=== PATIENT | female | born 1995 | race Caucasian/White ===

== ENCOUNTER 2020-07-16 18:45 | Emergency (ER) | payer MEDICAID, OTHER ==
[~2020-07-16] VITALS: Ht 154 cm; Wt 55.0 kg
[2020-07-16 19:53] LABS: BILIRUBIN,URINE NEGATIVE (NEGATIVE); COLOR,URINE YELLOW; GLUCOSE, URINE (UA) NEGATIVE (NEGATIVE); KETONES,URINE NEGATIVE (NEGATIVE); LEUKOCYTE ESTERASE ,URINE NEGATIVE (NEGATIVE); NITRITE,URINE NEGATIVE (NEGATIVE); PROTEIN,URINE NEGATIVE (NEGATIVE)
[2020-07-16 20:00] LABS: AMORPHOUS SEDIMENT,UR LARGE AMOR PHOSPHATE /LPF; BACTERIA,URINE TRACE /HPF; CLARITY,URINE SL CLOUDY; SQUAMOUS EPITHELIAL CELL,UR 0-2 /HPF
--- NOTE | 2020-07-16 20:16 | ED GU-Female ---
General Chief Complaint: OB < 20 WEEKS Stated Complaint: 6 WKS PREG/VAG BLEEDING Source: patient History of Present Illness Date Seen by Provider: Jul 16, 2020 Time Seen by Provider: 19:50 Initial Comments PT ARRIVES VIA POV FROM HOME PT STATES SHE IS 6 WEEKS , AND STARTED SPOTTING YESTERDAY HAD NORMAL PERIOD 04/29/20. ON 05/23/20-BLED FOR A COUPLE OF DAYS. 05/30-06/03--HAD NORMAL PERIOD A COUPLE OF WEEKS AGO, SHE BEGAN HAVING LOWER ABDOMINAL CRAMPING--BILATERAL PELVIC AREAS. SAW DR. JACOBSON APPROXIMATELY 1 1/2 WEEKS AGO FOR THIS PROBLEM AND WAS DX WITH . HAD ULTRASOUND DONE IN OFFICE AND WAS 5 WEEKS, 6 DAYS AT THAT TIME. HAD ROUTINE LAB DONE LAST FRIDAY HAS FOLLOW UP APPOINTMENT WITH DR. JACOBSON FOR EXAM AND ULTRASOUND. PT IS AB 0 PT STATES YESTERDAY SHE HAD A LITTLE SPOTTING--BLOOD ON TISSUE WITH WIPING, AND USED 1 PANTY LINER--NOT SATURATED/JUST SPOTTING. TODAY HAS HAD VERY MINIMAL BROWN SPOTTING TODAY AND NONE SINCE 1500. CRAMPING IS NOT ANY WORSE THAN IT HAS BEEN FOR THE LAST 2 WEEKS. HAS NOT TAKEN ANYTHING FOR PAIN TODAY. TOOK TYLENOL YESTERDAY. NO URINARY SYMPTOMS NO NAUSEA/VOMITING PT IS ON SUBUTEX FOR OPOID ADDICTION, AND IS BEING WEANED OFF XANAX SINCE BEING DX WITH . PT HAS NOT USED MARIJUANA SINCE BEING DX WITH . PCP: [facility]. DR. Silvana HAMILTON FOR ADDICTION ISSUES. DR. JACOBSON FOR OB Allergies and Home Medications Allergies Coded Allergies: Penicillins (Verified Allergy, Unknown, 07/16/20) Patient Home Medication List Home Medication List Reviewed: Yes Review of Systems Review of Systems Constitutional: no symptoms reported Respiratory: no symptoms reported Cardiovascular: no symptoms reported Gastrointestinal: see HPI, abdominal pain; No nausea, No vomiting Genitourinary: see HPI : Yes LMP: May 30, 2020 Musculoskeletal: no symptoms reported Skin: no symptoms reported Psychiatric/Neurological: No Symptoms Reported Endocrine: No Symptoms Reported Hematologic/Lymphatic: No Symptoms Reported Past [id number]-[id number] Hx Past Med/Social Hx: Reviewed and Corrections made Patient Social History Alcohol Use: Denies Use Recreational Drug Use: Yes (OPIOIDS, THC, XANAX) Drug of Choice: OPIODS, THC, XANAX Smoking Status: Never a Smoker Recent Foreign Travel: No Contact w/Someone Who Travel: No Past Medical History Surgeries: Yes (WISDOM TEETH REMOVED. ) Respiratory: No Cardiac: No Neurological: No : Yes Hx : 1 Hx Para: 0 Hx Total # of Abortions (Sp): 0 Physical Exam Vital Signs Vital Signs - First Documented 07/16/20 07/16/20 19:47 21:18 Temp 36.9 Pulse 71 Resp 18 B/P (MAP) 123/92 (102) Pulse Ox 100 O2 Delivery Room Air Capillary Refill : Height, Weight, BMI Height: '" Weight: lbs. oz. kg; BMI Method: General Appearance: WD/WN, no apparent distress, thin Cardiovascular: regular rate, rhythm, no murmur Respiratory: normal breath sounds, no respiratory distress, no accessory muscle use Gastrointestinal: normal bowel sounds, non tender, soft Pelvic: normal external exam; No tender adnexa, No tender uterus, No vaginal bleeding Back: no CVA tenderness Extremities: normal inspection Neurologic/Psychiatric: no motor/sensory deficits, alert, normal mood/affect, oriented x 3 Skin: normal color, warm/dry Progress/Results/Core Measures Suspected Sepsis SIRS Temperature: Pulse: Respiratory Rate: Blood Pressure / Mean: Results/Orders Lab Results Laboratory Tests Test 07/16/20 19:35 07/16/20 20:25 Range/Units Urine Color YELLOW Urine Clarity SL CLOUDY Urine pH 7.0 5-9 Urine Specific [place] 1.020 1.016-1.022 Urine Protein NEGATIVE NEGATIVE Urine Glucose (UA) NEGATIVE NEGATIVE Urine Ketones NEGATIVE NEGATIVE Urine Nitrite NEGATIVE NEGATIVE Urine Bilirubin NEGATIVE NEGATIVE Urine Urobilinogen 1.0 < = 1.0 MG/DL Urine Leukocyte Esterase NEGATIVE NEGATIVE Urine RBC (Auto) NEGATIVE NEGATIVE Urine RBC NONE /HPF Urine WBC NONE /HPF Urine Squamous Epithelial Cells 0-2 /HPF Urine Crystals PRESENT H /LPF Urine Amorphous Sediment LARGE EBONY PHOSPHATE H /LPF Urine Bacteria TRACE /HPF Urine Casts NONE /LPF Urine Mucus NEGATIVE /LPF Urine Culture Indicated NO Urine Test POSITIVE NEGATIVE Urine Opiates Screen NEGATIVE NEGATIVE Urine Oxycodone Screen NEGATIVE NEGATIVE Urine Methadone Screen NEGATIVE NEGATIVE Urine Propoxyphene Screen NEGATIVE NEGATIVE Urine Barbiturates Screen NEGATIVE NEGATIVE Ur Tricyclic Antidepressants Screen NEGATIVE NEGATIVE Urine Phencyclidine Screen NEGATIVE NEGATIVE Urine Amphetamines Screen NEGATIVE NEGATIVE Urine Methamphetamines Screen NEGATIVE NEGATIVE Urine Benzodiazepines Screen POSITIVE H NEGATIVE Urine Cocaine Screen NEGATIVE NEGATIVE Urine Cannabinoids Screen NEGATIVE NEGATIVE Human Chorionic Gonadotropin, Quant [id number] H <5 MIU/ML My Orders Orders - JOSSE HERNADEZ DO Hcg,Qualitative Urine (07/16/20 19:46) Ua Culture If Indicated (07/16/20 19:46) Hcg,Quantitative (07/16/20 19:53) Abo Rh Type (07/16/20 19:53) Drug Screen Stat (Urine) (07/16/20 20:09) Vital Signs/I&O 07/16/20 07/16/20 19:47 21:18 Temp 36.9 36.9 Pulse 71 70 Resp 18 18 B/P (MAP) 123/92 (102) 122/90 (102) Pulse Ox 100 O2 Delivery Room Air Room Air Capillary Refill : Progress Note : Progress Note NO ULTRASOUND AVAILABLE AT THIS TIME NO PAIN OR BLEEDING DURING ER STAY Departure Impression Primary Impression: Threatened in first trimester Disposition: 01 HOME, SELF-CARE Condition: Stable Departure-Patient Inst. Referrals: CHARLIE JACOBSON MD (PCP/Family) Primary Care Physician Patient Instructions: Bleeding With (DC), Threatened Miscarriage (DC), Bleeding In Early Add. Discharge Instructions: TYLENOL NEEDED FOR PAIN NOTHING IN VAGINA--NO TAMPONS, DOUCHING OR INTERCOURSE KEEP AN ACCURATE PAD COUNT--RETURN IF SOAKING MORE THAN 1 MAXI PAD AN HOUR FOLLOW UP WITH [facility] THIS WEEK FOR FURTHER CARE. All discharge instructions reviewed with patient and/or family. Voiced unde rstanding. JOSSE HERNADEZ DO Jul 16, 2020 20:15
[2020-07-16 20:59] LABS: AMPHETAMINE SCREEN, URINE NEGATIVE (NEGATIVE); BARBITURATE SCREEN URINE NEGATIVE (NEGATIVE); BENZODIAZEPINES SCREEN URINE POSITIVE (NEGATIVE); CANNABINOID SCREEN, URINE NEGATIVE (NEGATIVE); COCAINE SCREEN URINE NEGATIVE (NEGATIVE); METHADONE STAT NEGATIVE (NEGATIVE); METHAMPHETAMINE SCREEN URINE S NEGATIVE (NEGATIVE); OPIATE SCREEN URINE NEGATIVE (NEGATIVE); OXYCODONE STAT NEGATIVE (NEGATIVE); PROPOXYPHENE STAT NEGATIVE (NEGATIVE); TRICYCLIC ANTIDEPRESSANTS SCRE NEGATIVE (NEGATIVE)
[2020-07-16 21:18] VITALS: BP 122/90
== END 2020-07-16 21:19 | disposition home or self-care (01) ==
LOC: ER 18:47
DX: O20.0 Threatened abortion (principal); Z3A.01 Less than 8 weeks gestation of pregnancy; Z88.0 Allergy status to penicillin
CPT/HCPCS: 36415; 80306; 81000; 84702; 84703; 86900; 86901; 99282

== ENCOUNTER 2021-07-03 23:39 | Inpatient (IN) | payer MEDICAID ==
[~2021-07-03] VITALS: Ht 154.9 cm; Wt 72.3 kg
[2021-07-04] VITALS (10 sets, daily range): BP systolic 95–124; BP diastolic 50–81
[2021-07-04 00:07] LABS: BILIRUBIN,URINE NEGATIVE (NEGATIVE); CLARITY,URINE CLEAR; COLOR,URINE YELLOW; GLUCOSE, URINE (UA) NEGATIVE (NEGATIVE); KETONES,URINE NEGATIVE (NEGATIVE); LEUKOCYTE ESTERASE ,URINE 1+ (NEGATIVE); NITRITE,URINE NEGATIVE (NEGATIVE); PROTEIN,URINE TRACE (NEGATIVE)
[2021-07-04 00:18] LABS: BACTERIA,URINE TRACE /HPF; WBC,URINE 0-2 /HPF
[2021-07-04] MEDS ORDERED: CATHETER FLUSH 10 ML SYR IV PRN (00:30)
[2021-07-04] MEDS ORDERED: METOCLOPRAMIDE INJ 10 MG/2 ML (REGLAN) IV ONE (00:30)
[2021-07-04] MEDS ORDERED: LACTATED RINGERS 1,000 ML IV PRN (00:30)
[2021-07-04] MEDS ORDERED: FAMOTIDINE 20MG/2ML IV (PEPCID) IV ONE (00:30)
[2021-07-04] MEDS ORDERED: CITRIC ACID/SOB CIT (BICITRA) 30 ML UDC PO ONE (00:30)
[2021-07-04] MEDS ORDERED: FERR-84 PO (00:33)
[2021-07-04] MEDS ORDERED: BUPR8TAB SL (00:33)
[2021-07-04] MEDS ORDERED: ceFAZolin 2 GM IV Premixed 50 ML IV ONE (00:45)
[2021-07-04 00:47] LABS: BASOPHILS % (AUTO) 0 % (0-10); EOSINOPHILS # (AUTO) 0.1 10^3/uL (0.0-0.3); EOSINOPHILS % (AUTO) 1 % (0-10); HEMATOCRIT 36 % (35-52); HEMOGLOBIN 11.6 g/dL (11.5-16.0); LYMPHOCYTES # (AUTO) 1.6 10^3/uL (1.0-4.0); LYMPHOCYTES % (AUTO) 23 % (12-44); MEAN CORPUSCULAR HEMOGLOBIN 30 pg (25-34); MEAN CORPUSCULAR HGB CONC 32 g/dL (32-36); MEAN CORPUSCULAR VOLUME 94 fL (80-99); MEAN PLATELET VOLUME 10.8 fL (9.0-12.2); MONOCYTES # (AUTO) 0.8 10^3/uL (0.0-1.0); MONOCYTES % (AUTO) 11 % (0-12); NEUTROPHILS # (AUTO) 4.4 10^3/uL (1.8-7.8); NEUTROPHILS % (AUTO) 64 % (42-75); PLATELET COUNT 166 10^3/uL (130-400); WHITE BLOOD COUNT 6.9 10^3/uL (4.3-11.0)
[2021-07-04] MEDS: LACTATED RINGERS 1,000 ML IV PRN ×2 (00:52→01:30)
--- NOTE | 2021-07-04 00:54 | History & Physical-OB ---
OB - Chief Complaint & HPI Date/Time Date of Admission: Date of Admission: Time Seen by a Provider: 12:37 Chief Complaint/History OB-Reason for Admission/Chief: Rupture of Membranes (This is a 25-year-old 2 para 0 female at 37 weeks gestation. She presents for spontaneous rupture of membranes. 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 She states her most recent outbreak was within the last [address] Hernandez gave her a prescription for acyclovir but she has not picked that up. I was not able to examine her to see if she is still having an acute outbreak.) Hx : 2 Hx Para: 0 Expected Date of Delivery: Jul 25, 2021 Gestational Age in Weeks: 37 Gestational Age in Days: 0 Admission Nurse Assessment Rev: Yes History of Labs GBS - A+/- HIV - VDRL NR HCV Ab + HCV RNA + VDRL NR Rub results were not located on the patient chart from Dr. Hernandez. Allergies and Home Medications Allergies Coded Allergies: Penicillins (Verified Allergy, Unknown, 07/16/20) Patient Home Medication List Home Medication List Reviewed: Yes (PCN, able to take cephalosporins) Buprenorphine HCl (Buprenorphine HCl) 8 Mg Tab.subl, 8 MG SL, (Reported) Entered as Reported by: ROD EVANS on 07/04/2132 Last Action: New Order Ferrous Sulfate (Iron) 325 Mg Tablet, 325 MG PO, (Reported) Entered as Reported by: ROD EVANS on 07/04/2132 Last Action: New Order OB - History Hx of Present Ultrasounds: Normal mid trimester US Obstetrical Complications: None Medical Complications: Other (acute HSV outbreak, Maternal opoid abuse on b uprenophine, HCV +) Information Induced Hypertension: No Maternal Gestational Diabetes: No Hemorrhage: No Obstetrical History Hx : 2 Hx Para: 0 Hx # Term Pregnancies: 0 Hx # Pregnancies: 0 Number of Living Children: 0 Patient Past Medical History See above Social History/Family History Alcohol Use: Denies Use Recreational Drug Use: Yes (history of opioid abuse on buprenorphine) Smoking Cessation: Never smoker 2nd Hand Smoke Exposure: No Immunizations Hepatitis A: No Hepatitis B: No Rubella: unknown RPR/VDRL: Negative GBS Status: Negative HBsAG: Negative OB - Admission Exam Physical Exam Heart: Rhythm Normal Lungs: Clear Abdomen: Gravid Extremities: Normal Reflexes: Normal Cervical Dilatation: 3cm Effacement: 75% Station: -2 Membranes: Ruptured Amniotic Fluid: Clear Heart Rate: 130's Accelerations: No Accelerations Short Term Variability: Absent Mask Inspector Variability: Minimal (3-5) Contractions on Admission: 6-10 Minutes Apart Labs Laboratory Tests Test 07/03/21 23:45 07/04/21 00:37 Range/Units Urine Color YELLOW Urine Clarity CLEAR Urine pH 7.0 5-9 Urine Specific [place] 1.010 L 1.016-1.022 Urine Protein TRACE H NEGATIVE Urine Glucose (UA) NEGATIVE NEGATIVE Urine Ketones NEGATIVE NEGATIVE Urine Nitrite NEGATIVE NEGATIVE Urine Bilirubin NEGATIVE NEGATIVE Urine Urobilinogen 0.2 < = 1.0 MG/DL Urine Leukocyte Esterase 1+ H NEGATIVE Urine RBC (Auto) TRACE-I H NEGATIVE Urine RBC NONE /HPF Urine WBC 0-2 /HPF Urine Squamous Epithelial Cells 5-10 /HPF Urine Crystals NONE /LPF Urine Bacteria TRACE /HPF Urine Casts NONE /LPF Urine Mucus SMALL H /LPF Urine Culture Indicated NO White Blood Count 6.9 4.3-11.0 10^3/uL Red Blood Count 3.84 3.80-5.11 10^6/uL Hemoglobin 11.6 11.5-16.0 g/dL Hematocrit 36 35-52 % Mean Corpuscular Volume 94 80-99 fL Mean Corpuscular Hemoglobin 30 25-34 pg Mean Corpuscular Hemoglobin Concent 32 32-36 g/dL Red Cell Distribution Width 13.2 10.0-14.5 % Platelet Count 166 130-400 10^3/uL Mean Platelet Volume 10.8 9.0-12.2 fL Immature Granulocyte % (Auto) 0 % Neutrophils (%) (Auto) 64 42-75 % Lymphocytes (%) (Auto) 23 12-44 % Monocytes (%) (Auto) 11 0-12 % Eosinophils (%) (Auto) 1 0-10 % Basophils (%) (Auto) 0 0-10 % Neutrophils # (Auto) 4.4 1.8-7.8 10^3/uL Lymphocytes # (Auto) 1.6 1.0-4.0 10^3/uL Monocytes # (Auto) 0.8 0.0-1.0 10^3/uL Eosinophils # (Auto) 0.1 0.0-0.3 10^3/uL Basophils # (Auto) 0.0 0.0-0.1 10^3/uL Immature Granulocyte # (Auto) 0.0 0.0-0.1 10^3/uL OB - Assessment/Plan/Diagnosis Assessment Assessment: rupture of membranes, other (HSV + with recent outbreak, history of untreated HCV, history of opioid abuse on buprenorphine) Admission Dx Premature rupture of membranes Admission Status: Inpatient Order (span 2 midnights) Reason for Inpatient Admission: premature rupture of membranes section (see history) 37 week gestation Plan Plan: Section (Will plan primary cesaraen section as discussed with the patient by Dr. Hernandez due to recent HSV outbreak. Risks of this procedure including infection, bleeding, injury to bowel, bladder, ureter has been explained to the patient. Will plan CS now) ROSANNE PEPPER DO Jul 04, 2021 00:54
[2021-07-04] MEDS ORDERED: fentaNYL INJ 100 MCG/2 ML AMP ONE (01:25)
[2021-07-04] MEDS ORDERED: TETANUS,DIPTH,PERTUSS P/F (BOOSTRIX) 0.5 ML VIAL IM SCH (01:45)
[2021-07-04] MEDS ORDERED: NALOXONE 0.4 MG/ML 1 ML (NARCAN) VIAL IV PRN ×2 (01:45→09:45)
[2021-07-04] MEDS ORDERED: OXYTOCIN PRE-MIX DRIP 500 ML IV SCH (01:45)
[2021-07-04] MEDS ORDERED: OXYTOCIN PRE-MIX DRIP 500 ML IV ONE (01:51)
[2021-07-04] MEDS ORDERED: PHENYLEPHRINE 100 MCG/ML 10 ML (ANESTHESIA) SYR ONE (01:51)
[2021-07-04] MEDS ORDERED: ROPIVACAINE 5MG/ML 30ML VIAL ONE (01:59)
[2021-07-04] MEDS ORDERED: KETOROLAC 30 MG/ML VIAL ONE (02:24)
--- NOTE | 2021-07-04 02:31 | Cesarean Section Operative ---
Procedure Procedure Note Pre-operative Diagnosis: Mariela Madrigal is a (25 /Para 2 / 0, Gestational Age (wks)37 with recent HSV outbreak with SROM, Hep C +, history of opioid abuse on suboxone Post-operative Diagnosis: same Procedure: Primary low transverse section Physician: ROSANNE PEPPER Estimated blood loss: 600 mL Disposition: stable Findings: Viable female , Apgars 8/9, weight 5$6 ounces, intact placenta, 3vc, normal appearing uterus, tubes, and ovaries. Indications:Mariela Madrigal is a 25 /Para 2 / 0,Gestational Age (wks)37 with recent HSV outbreak with SROM, Hep C +, history of opioid abuse on suboxone presenting for primary section Procedure Details: The patient was seen in pre-op and the procedure was discussed with the patient in full, including the risks, benefits, and alternatives. All questions were answered. The patient was taken to the operating room and a time out was performed, verifying patient and procedure. After spinal anesthesia was placed by our anesthesia colleagues, the patient was placed in the dorsal supine with leftward tilt for uterine displacement.~ Her abdomen was then prepped and draped in the typical sterile fashion. A Pfannenstiel skin incision was made using a scalpel and carried down through the underlying fascia. The fascia was incised in the midline and tented up using Boogie clamps. On both the inferior and superior fascia side the rectus muscle was dissected off bluntly and sharply using Khan scissors. The peritoneum was identified and entered bluntly in the midline. This was then stretched laterally using manual strength. After entering the abdominal cavity and confirming lack of intraperitoneal adhesions, a large Elpidio retractor was placed and the lower uterine segment was visualized. A scalpel was utilized to make a low transverse uterine incision. Amniotomy was performed with an Allis clamp with return of clear fluid. The infant's head was grasped and brought to the level of the incision with assistance of a silastic suction. Fundal pressure was applied and infant was delivered without difficulty. Mouth and nares were suctioned with bulb suction. After the umbilical cord was clamped and cut, the infant was handed off to the pediatric staff. A sample of cord blood was then obtained. The placenta was delivered intact via uterine massage. The uterus was cleared of all clots and debris. The uterine incision was closed using 0 Vicryl in a running locked fashion. A second imbricated layer was placed using 0 Vicryl in a running fashion as well. The bilateral tubes and ovaries appeared normal. The abdominal gutters were cleared of all clots and debris. A final check of the uterine incision showed it to be hemostatic. The peritoneum was closed using 3-0 Vicryl in a running fashion. The fascia was closed with 2-0 PDS in a running fashion. The subcutaneous space was hemostatic, and irrigated. The subcutaneous space was closed with 0 Plain in several single interrupted stitches. The skin was then closed using 4-0 Monocryl in a running subcuticular fashion. The skin edges were reapproximated together and were hemostatic. A pressure dressing was applied. All sponge, lap and needle counts were correct at the end of the procedure per nursing. Vitals - Labs Vital Signs - I&O I & O 07/04/21 07:00 Intake Total 1050 ml Output Total 150 ml Balance 900 ml Labs Laboratory Tests 07/03/21 23:45: Urine Color YELLOW, Urine Clarity CLEAR, Urine pH 7.0, Urine Specific [place] 1.010L, Urine Protein TRACEH, Urine Glucose (UA) NEGATIVE, Urine Ketones NEGATIVE, Urine Nitrite NEGATIVE, Urine Bilirubin NEGATIVE, Urine Urobilinogen 0.2, Urine Leukocyte Esterase 1+H, Urine RBC (Auto) TRACE-IH, Urine RBC NONE, Urine WBC 0-2, Urine Squamous Epithelial Cells 5-10, Urine Crystals NONE, Urine Bacteria TRACE, Urine Casts NONE, Urine Mucus SMALLH, Urine Culture Indicated NO 07/04/21 00:37: White Blood Count 6.9, Red Blood Count 3.84, Hemoglobin 11.6, Hematocrit 36, Mean Corpuscular Volume 94, Mean Corpuscular Hemoglobin 30, Mean Corpuscular Hemoglobin Concent 32, Red Cell Distribution Width 13.2, Platelet Count 166, Mean Platelet Volume 10.8, Immature Granulocyte % (Auto) 0, Neutrophils (%) (Auto) 64, Lymphocytes (%) (Auto) 23, Monocytes (%) (Auto) 11, Eosinophils (%) (Auto) 1, Basophils (%) (Auto) 0, Neutrophils # (Auto) 4.4, Lymphocytes # (Auto) 1.6, Monocytes # (Auto) 0.8, Eosinophils # (Auto) 0.1, Basophils # (Auto) 0.0, Immature Granulocyte # (Auto) 0.0 ROSANNE PEPPER DO Jul 04, 2021 02:31
[2021-07-04] MEDS ORDERED: HYDROmorphone 2 MG/ML VIAL (DILAUDID) IV ONE (03:00)
[2021-07-04] MEDS ORDERED: ONDANSETRON 4 MG/2 ML (SDV) Z0FRAN IVP PRN (03:00)
[2021-07-04] MEDS ORDERED: CATHETER FLUSH 10 ML SYR IV SCH (06:00)
[2021-07-04] MEDS: KETOROLAC 30 MG/ML VIAL IV SCH ×2 (07:57→14:29)
[2021-07-04] MEDS: ACETAMINOPHEN 500 MG TAB (TYLENOL) PO SCH ×2 (07:57→16:11)
[2021-07-04] MEDS: DOCUSATE SODIUM 100 MG (COLACE) CAP PO SCH (07:58)
[2021-07-04] MEDS: MEASLES,MUMPS,RUBELLA 1 EA INJ SC SCH ×2 (08:45→17:37)
[2021-07-04] MEDS ORDERED: IBUP-844 PO (13:06)
[2021-07-04] MEDS ORDERED: DOCU100C37 PO (13:06)
[2021-07-04] MEDS ORDERED: ACET-93 PO (13:06)
[2021-07-04] MEDS ORDERED: OXC5T PO (13:06)
--- NOTE | 2021-07-04 14:10 | Anesthesia-Regional Post-Op ---
Regional Patient Condition Mental Status: Alert, Oriented x3 Circulation: Same as Pre-Op Headache: Absent Sensation: Full Recovery Motor Block: Absent Post Op Complications Complications None Follow Up Care/Instructions Patient Instructions None needed. Anesthesia/Patient Condition Patient is doing well, no complaints, stable vital signs, no apparent adverse anesthesia problems. No complications reported per nursing. ALEKSANDR BROWNING CRNA Jul 04, 2021 14:10
[2021-07-04] MEDS ORDERED: IBUPROFEN 600 MG (MOTRIN) TAB PO SCH (14:30)
[2021-07-04] MEDS ORDERED: IBUPROFEN 600 MG (MOTRIN) TAB PO ONE ×2 (14:38→21:22)
[2021-07-04] MEDS: IBUPROFEN 600 MG (MOTRIN) TAB PO SCH (21:26)
[2021-07-05 00:30] VITALS: BP 93/51
[2021-07-05] MEDS ORDERED: IBUPROFEN 600 MG (MOTRIN) TAB PO ONE ×2 (03:36→10:17)
[2021-07-05] MEDS: IBUPROFEN 600 MG (MOTRIN) TAB PO SCH ×4 (03:39→21:57)
[2021-07-05] MEDS: ACETAMINOPHEN 500 MG TAB (TYLENOL) PO SCH ×4 (03:39→21:57)
[2021-07-05 03:40] VITALS: BP 97/65
[2021-07-05] MEDS ORDERED: IBUPROFEN 600 MG (MOTRIN) TAB PO SCH (06:00)
[2021-07-05 06:31] LABS: BASOPHILS % (AUTO) 0 % (0-10); EOSINOPHILS # (AUTO) 0.1 10^3/uL (0.0-0.3); EOSINOPHILS % (AUTO) 1 % (0-10); HEMATOCRIT 30 % (35-52); HEMOGLOBIN 9.7 g/dL (11.5-16.0); LYMPHOCYTES # (AUTO) 1.7 10^3/uL (1.0-4.0); LYMPHOCYTES % (AUTO) 19 % (12-44); MEAN CORPUSCULAR HEMOGLOBIN 30 pg (25-34); MEAN CORPUSCULAR HGB CONC 32 g/dL (32-36); MEAN CORPUSCULAR VOLUME 94 fL (80-99); MEAN PLATELET VOLUME 11.8 fL (9.0-12.2); MONOCYTES # (AUTO) 0.8 10^3/uL (0.0-1.0); MONOCYTES % (AUTO) 9 % (0-12); NEUTROPHILS # (AUTO) 6.3 10^3/uL (1.8-7.8); NEUTROPHILS % (AUTO) 70 % (42-75); PLATELET COUNT 169 10^3/uL (130-400); WHITE BLOOD COUNT 8.9 10^3/uL (4.3-11.0)
[2021-07-05] MEDS: DOCUSATE SODIUM 100 MG (COLACE) CAP PO SCH ×3 (08:32→21:56)
[2021-07-05 08:45] VITALS: BP 108/56
--- NOTE | 2021-07-05 15:31 | Postpartum Progress Note ---
Note Note Day # 1 Subjective: Patient is without complaints. Ambulating, voiding. Tolerating a regular diet without nausea or vomiting. Normal lochia. Pain is well controlled with oral pain medications. Objective: Physical Exam: General - Alert and oriented, no apparent distress Abdomen - Soft, appropriately tender to palpation, non-distended, fundus firm at umbilicus Extremities - no edema, negative Deanne's bilaterally Assessment: Post- day # 1, status post PLTCS. Recovering well, hemodynamically stable Acute blood loss anemia Plan: Routine care. Encourage breast feeding. Encourage ambulation. Ferrous sulfate supplementation. Plan for discharge tomorrow Vitals - Labs Vital Signs - I&O Vital Signs Date Time Temp Pulse Resp B/P (MAP) Pulse Ox O2 Delivery O2 Flow Rate FiO2 07/05/21 08:45 36.5 76 16 108/56 (73) 95 07/05/21 03:40 36.7 82 18 97/65 (76) 97 07/05/21 00:30 36.6 67 18 93/51 (65) 94 07/04/21 21:25 37.1 78 18 102/63 (76) 94 07/04/21 15:59 36.5 76 18 100/50 (67) 95 I & O 07/05/21 07:00 Intake Total 2000 ml Output Total 1900 ml Balance 100 ml Labs Laboratory Tests 07/05/21 05:36: White Blood Count 8.9, Red Blood Count 3.21L, Hemoglobin 9.7L, Hematocrit 30L, Mean Corpuscular Volume 94, Mean Corpuscular Hemoglobin 30, Mean Corpuscular Hemoglobin Concent 32, Red Cell Distribution Width 13.4, Platelet Count 169, Mean Platelet Volume 11.8, Immature Granulocyte % (Auto) 0, Neutrophils (%) (Auto) 70, Lymphocytes (%) (Auto) 19, Monocytes (%) (Auto) 9, Eosinophils (%) (Auto) 1, Basophils (%) (Auto) 0, Neutrophils # (Auto) 6.3, Lymphocytes # (Auto) 1.7, Monocytes # (Auto) 0.8, Eosinophils # (Auto) 0.1, Basophils # (Auto) 0.0, Immature Granulocyte # (Auto) 0.0 DAVID ESQUIVEL APRN Jul 05, 2021 15:31
[2021-07-05 16:25] VITALS: BP 107/66
[2021-07-05 17:50] LABS: BASOPHILS # (AUTO) 0.1 10^3/uL (0.0-0.1); BASOPHILS % (AUTO) 1 % (0-10); EOSINOPHILS # (AUTO) 0.2 10^3/uL (0.0-0.3); EOSINOPHILS % (AUTO) 2 % (0-10); HEMATOCRIT 30 % (35-52); HEMOGLOBIN 9.8 g/dL (11.5-16.0); LYMPHOCYTES # (AUTO) 1.7 10^3/uL (1.0-4.0); LYMPHOCYTES % (AUTO) 17 % (12-44); MEAN CORPUSCULAR HEMOGLOBIN 30 pg (25-34); MEAN CORPUSCULAR HGB CONC 33 g/dL (32-36); MEAN CORPUSCULAR VOLUME 94 fL (80-99); MEAN PLATELET VOLUME 11.1 fL (9.0-12.2); MONOCYTES # (AUTO) 0.7 10^3/uL (0.0-1.0); MONOCYTES % (AUTO) 7 % (0-12); NEUTROPHILS # (AUTO) 7.5 10^3/uL (1.8-7.8); NEUTROPHILS % (AUTO) 74 % (42-75); PLATELET COUNT 196 10^3/uL (130-400); WHITE BLOOD COUNT 10.1 10^3/uL (4.3-11.0)
[2021-07-05 21:57] VITALS: BP 107/65
[2021-07-06] VITALS (10 sets, daily range): BP systolic 105–131; BP diastolic 58–84
[2021-07-06] MEDS: IBUPROFEN 600 MG (MOTRIN) TAB PO SCH (04:18)
[2021-07-06] MEDS: ACETAMINOPHEN 500 MG TAB (TYLENOL) PO SCH ×2 (06:24→16:55)
[2021-07-06] MEDS: DOCUSATE SODIUM 100 MG (COLACE) CAP PO SCH ×2 (09:00→21:21)
--- NOTE | 2021-07-06 09:55 | Progress Note ---
Progress Note Assessment/Plan Date Seen by Provider: Jul 05, 2021 Time Seen by Provider: 17:30 Events since last exam RN asked me to come see the patient's incision. Said it iw very painful and bruised. Concerned about the appearance. Patient complains of RUQ and shoulder pain and pain on the right side of the incision with movement. Discssed that the RUQ and shoulder pain are due to air and will improve with movement and time. However, her incision is very ecchymotic There is a line of ecchymosis superior and inferior to the incions in a band approximately 4 cm. This is a superficial ecchymotic area. However, there is a 4x5 cm hematoma in the left incision. There is no drainage. Hematoma edge was marked. Will check CBC and place pressure and reevaluate in the morning. Assessment/Plan wound hematoma post operative ecchymosis plan as above Vitals Last set of Vitals Signs Vital Signs Date Time Temp Pulse Resp B/P (MAP) Pulse Ox O2 Delivery O2 Flow Rate FiO2 07/06/21 04:18 36.5 79 16 105/62 (76) 97 Room Air I&O I&O Intake and Output 07/06/21 00:00 Intake Total 700 ml Output Total 1200 ml Balance -500 ml Intake Oral 700 ml Output Urine Total 1200 ml Labs Laboratory Tests 07/05/21 17:42: White Blood Count 10.1, Red Blood Count 3.22L, Hemoglobin 9.8L, Hematocrit 30L, Mean Corpuscular Volume 94, Mean Corpuscular Hemoglobin 30, Mean Corpuscular Hemoglobin Concent 33, Red Cell Distribution Width 13.6, Platelet Count 196, Mean Platelet Volume 11.1, Immature Granulocyte % (Auto) 0, Neutrophils (%) (Auto) 74, Lymphocytes (%) (Auto) 17, Monocytes (%) (Auto) 7, Eosinophils (%) (Auto) 2, Basophils (%) (Auto) 1, Neutrophils # (Auto) 7.5, Lymphocytes # (Auto) 1.7, Monocytes # (Auto) 0.7, Eosinophils # (Auto) 0.2, Basophils # (Auto) 0.1, Immature Granulocyte # (Auto) 0.0 ROSANNE PEPPER DO Jul 06, 2021 09:54
--- NOTE | 2021-07-06 09:59 | Postpartum Progress Note ---
Post Op Post-operative Day #2 s/p PLTCS wound hematoma Subjective: Patient states she feels a little better but still with pain in incision. Ambulating,Tolerating a regular diet without nausea or vomiting. Normal lochia. Pain is well controlled with oral pain medications. Passing flatus. breast feeding. Objective: plts count was wnl. Hgb stable \\ Laboratory Tests Test 07/05/21 17:42 Range/Units White Blood Count 10.1 4.3-11.0 10^3/uL Red Blood Count 3.22 L 3.80-5.11 10^6/uL Hemoglobin 9.8 L 11.5-16.0 g/dL Hematocrit 30 L 35-52 % Mean Corpuscular Volume 94 80-99 fL Mean Corpuscular Hemoglobin 30 25-34 pg Mean Corpuscular Hemoglobin Concent 33 32-36 g/dL Red Cell Distribution Width 13.6 10.0-14.5 % Platelet Count 196 130-400 10^3/uL Mean Platelet Volume 11.1 9.0-12.2 fL Immature Granulocyte % (Auto) 0 % Neutrophils (%) (Auto) 74 42-75 % Lymphocytes (%) (Auto) 17 12-44 % Monocytes (%) (Auto) 7 0-12 % Eosinophils (%) (Auto) 2 0-10 % Basophils (%) (Auto) 1 0-10 % Neutrophils # (Auto) 7.5 1.8-7.8 10^3/uL Lymphocytes # (Auto) 1.7 1.0-4.0 10^3/uL Monocytes # (Auto) 0.7 0.0-1.0 10^3/uL Eosinophils # (Auto) 0.2 0.0-0.3 10^3/uL Basophils # (Auto) 0.1 0.0-0.1 10^3/uL Immature Granulocyte # (Auto) 0.0 0.0-0.1 10^3/uL Physical Exam: General - Alert and oriented, no apparent distress Abdomen - Soft, appropriately tender to palpation, non-distended, fundus firm at umbilicus Incision - clean, dry and intact; no erythema or induration, no drainage; however, there is a hematoma described yesterday and this is unchanged. No bigger, no smaller. The eccyhmosis has not progressed either. She does have petechiae and ecchymosis on the periphery of the location that the cautery patch was removed. Extremities - no edema, negative Deanne's bilaterally Assessment: 1. post-operative day # 2, status post PLTCS. Recovering well, hemodynamically stable 2. Acute blood loss anemia 3. Wound hematoma and ecchymosis Plan: Routine post-operative care. Encourage breast feeding. Encourage ambulation. Plan wound evacuation in the OR today. Risks include bleeding, infection. Will open wound and clean out hematoma and then reclose. Vitals - Labs Vital Signs - I&O Vital Signs Date Time Temp Pulse Resp B/P (MAP) Pulse Ox O2 Delivery O2 Flow Rate FiO2 07/06/21 04:18 36.5 79 16 105/62 (76) 97 Room Air 07/05/21 21:57 36.6 91 16 107/65 (79) 96 Room Air 07/05/21 16:25 36.5 69 16 107/66 (80) 96 Room Air I & O 07/06/21 07:00 Intake Total 1500 ml Output Total 1200 ml Balance 300 ml Labs Laboratory Tests 07/05/21 17:42: White Blood Count 10.1, Red Blood Count 3.22L, Hemoglobin 9.8L, Hematocrit 30L, Mean Corpuscular Volume 94, Mean Corpuscular Hemoglobin 30, Mean Corpuscular Hemoglobin Concent 33, Red Cell Distribution Width 13.6, Platelet Count 196, Mean Platelet Volume 11.1, Immature Granulocyte % (Auto) 0, Neutrophils (%) (Auto) 74, Lymphocytes (%) (Auto) 17, Monocytes (%) (Auto) 7, Eosinophils (%) (Auto) 2, Basophils (%) (Auto) 1, Neutrophils # (Auto) 7.5, Lymphocytes # (Auto) 1.7, Monocytes # (Auto) 0.7, Eosinophils # (Auto) 0.2, Basophils # (Auto) 0.1, Immature Granulocyte # (Auto) 0.0 ROSANNE PEPPER DO Jul 06, 2021 09:59
[2021-07-06] MEDS ORDERED: LACTATED RINGERS 1,000 ML IV PRN (11:00)
[2021-07-06] MEDS: LACTATED RINGERS 1,000 ML IV SCH ×2 (11:02→16:55)
[2021-07-06 11:15] LABS: BASOPHILS % (AUTO) 0 % (0-10); EOSINOPHILS # (AUTO) 0.3 10^3/uL (0.0-0.3); EOSINOPHILS % (AUTO) 3 % (0-10); HEMATOCRIT 29 % (35-52); HEMOGLOBIN 9.4 g/dL (11.5-16.0); LYMPHOCYTES # (AUTO) 1.3 10^3/uL (1.0-4.0); LYMPHOCYTES % (AUTO) 16 % (12-44); MEAN CORPUSCULAR HEMOGLOBIN 30 pg (25-34); MEAN CORPUSCULAR HGB CONC 32 g/dL (32-36); MEAN CORPUSCULAR VOLUME 94 fL (80-99); MEAN PLATELET VOLUME 11.2 fL (9.0-12.2); MONOCYTES # (AUTO) 0.7 10^3/uL (0.0-1.0); MONOCYTES % (AUTO) 9 % (0-12); NEUTROPHILS # (AUTO) 5.4 10^3/uL (1.8-7.8); NEUTROPHILS % (AUTO) 70 % (42-75); PLATELET COUNT 202 10^3/uL (130-400); WHITE BLOOD COUNT 7.7 10^3/uL (4.3-11.0)
[2021-07-06] MEDS ORDERED: ceFAZolin 2 GM IV Premixed 50 ML IV ONE (12:00)
[2021-07-06] MEDS ORDERED: BUPIVACAINE 0.5% 30 ML (SENSORCAINE) VIAL ONE (13:00)
[2021-07-06] MEDS ORDERED: fentaNYL INJ 100 MCG/2 ML AMP ONE (13:58)
[2021-07-06] MEDS ORDERED: MIDAZOLAM 2 MG/2 ML (VERSED) VIAL ONE (13:58)
[2021-07-06] MEDS ORDERED: PROPOFOL INJECTION 50 ML IV ONE (14:14)
[2021-07-06] MEDS ORDERED: LIDOCAINE PF 2% 5 ML (XYLOCAINE) VIAL ONE (15:10)
[2021-07-06] MEDS ORDERED: KETOROLAC 30 MG/ML VIAL ONE (15:12)
[2021-07-06] MEDS ORDERED: morphine INJ 10 MG/ML 1ML (SYR OR VIAL) IVP PRN (15:30)
--- NOTE | 2021-07-06 15:30 | Operative Report ---
Operative Report Date of Procedure/Surgery Jul 06, 2021 Surgeon (s) ROSANNE PEPPER DO International Coordinator (s): NA Post-Operative Diagnosis incisional hematoma Procedure Performed Evacuation of incisional hematoma Description of Procedure Anesthesia Type: Spinal Estimated blood loss (mL): 150 clotted blood, no active bleeding Specimen(s) collected/removed none Description of the Procedure With informed consent, the patient was taken to the operating room where general anesthetic was found to be adequate. The incision was examined and found to have no extension of the hematoma from yesterday. But there was extensive ecchymosis surrounding the incision. The previous incision was then opened. The surgical glue was removed and the sutures were cut with a scalpel and then with the scissors. There was a large amount of hematoma that was evacuated from the incision. There was, approximately 150 mL of clotted blood suctioned from the incision. I then copiously irrigated. I could not find an active bleeding. But upon further investigation there was some oozing from the left apex. This was suspected to be the cause of bleeding. This was controlled with cautery. I then irrigated the incision and found no further active bleeding. The fascia was intact. The Purnima's fascia was reapproximated with 0 plain in an interrupted fashion. I then closed reclosed the incision with subcuticular 4-0 Monocryl. Surgical glue was replaced on the incision. Bandage was not placed as it was suspected that she had a reaction to the previous bandage. There was no active bleeding. The patient was now awakened and taken to recovery room in stable condition. Sponge, needle, and instrument counts were correct x2. Findings of the Procedure there was about 150 ml of clotted blood in the incision. There was no extension of the hematoma since yesterday. The wound was intact. There continues to be ecchymosis superior and inferior to the incision, but this was stable since I examined her yesterday. Allergies and Home Medications Allergies Coded Allergies: Penicillins (Verified Allergy, Unknown, 07/16/20) Patient Home Medication List Home Medication List Reviewed: Yes Acetaminophen (Acetaminophen) 500 Mg Tablet, 1,000 MG PO Q8HR Prescribed by: ROSANNE PEPPER on 07/04/21 1306 Buprenorphine HCl (Buprenorphine HCl) 8 Mg Tab.subl, 8 MG SL, (Reported) Entered as Reported by: ROD EVANS on 07/04/2132 Last Action: New Order Docusate Sodium (Docusate Sodium) 100 Mg Capsule, 100 MG PO BID Prescribed by: ROSANNE PEPPER on 07/04/21 130 Ferrous Sulfate (Iron) 325 Mg Tablet, 325 MG PO, (Reported) Entered as Reported by: ROD EVANS on 07/04/2132 Last Action: New Order Ibuprofen (Ibu) 600 Mg Tablet, 600 MG PO Q6HR Prescribed by: ROSANNE PEPPER on 07/04/21 1306 Oxycodone Hcl (Oxyir Tablet) 5 Mg Tab, 10 MG PO Q6H PRN for PAIN-SEE DOSE INSTRUCTIONS Prescribed by: ROSANNE PEPPER on 07/04/21 130 ROSANNE PEPPER DO Jul 06, 2021 15:30
[2021-07-06] MEDS: KETOROLAC 30 MG/ML VIAL IVP SCH (21:21)
[2021-07-07] MEDS ORDERED: IBUPROFEN 600 MG (MOTRIN) TAB PO ONE ×2 (04:04→09:36)
[2021-07-07] MEDS: IBUPROFEN 600 MG (MOTRIN) TAB PO SCH ×2 (04:04→09:47)
[2021-07-07 04:05] VITALS: BP 115/66
[2021-07-07] MEDS: ACETAMINOPHEN 500 MG TAB (TYLENOL) PO SCH ×2 (04:05→15:01)
[2021-07-07 06:24] LABS: BASOPHILS % (AUTO) 0 % (0-10); EOSINOPHILS # (AUTO) 0.2 10^3/uL (0.0-0.3); EOSINOPHILS % (AUTO) 3 % (0-10); HEMATOCRIT 28 % (35-52); HEMOGLOBIN 9.2 g/dL (11.5-16.0); LYMPHOCYTES # (AUTO) 0.7 10^3/uL (1.0-4.0); LYMPHOCYTES % (AUTO) 10 % (12-44); MEAN CORPUSCULAR HEMOGLOBIN 31 pg (25-34); MEAN CORPUSCULAR HGB CONC 33 g/dL (32-36); MEAN CORPUSCULAR VOLUME 94 fL (80-99); MEAN PLATELET VOLUME 10.5 fL (9.0-12.2); MONOCYTES # (AUTO) 0.6 10^3/uL (0.0-1.0); MONOCYTES % (AUTO) 9 % (0-12); NEUTROPHILS # (AUTO) 5.8 10^3/uL (1.8-7.8); NEUTROPHILS % (AUTO) 78 % (42-75); PLATELET COUNT 204 10^3/uL (130-400); WHITE BLOOD COUNT 7.5 10^3/uL (4.3-11.0)
[2021-07-07] MEDS: DOCUSATE SODIUM 100 MG (COLACE) CAP PO SCH (09:46)
[2021-07-07 10:30] VITALS: BP 107/64
[2021-07-07] MEDS: KETOROLAC 30 MG/ML VIAL IVP SCH ×2 (14:00→14:30)
[2021-07-07] MEDS: LACTATED RINGERS 1,000 ML IV SCH (14:32)
[2021-07-07 15:30] VITALS: BP 116/70
[2021-07-07 17:45] VITALS: BP 116/70
--- NOTE | 2021-07-08 10:07 | Anesthesia-General Post-Op ---
General Patient Condition Mental Status/LOC: Same as Preop Cardiovascular: Satisfactory Nausea/Vomiting: Absent Respiratory: Satisfactory Pain: Controlled Complications: Absent Post Op Complications Complications None Follow Up Care/Instructions Patient Instructions None needed. Anesthesia/Patient Condition Patient Condition Patient is doing well, no complaints, stable vital signs, no apparent adverse anesthesia problems. No complications reported per nursing. GAVINO QUEVEDO CRNA Jul 08, 2021 10:07
--- NOTE | 2021-07-26 08:18 | Short Stay Summary ---
Discharge Summary Hospital Course Final Diagnosis: SROM, HSV, 37 weeks, wound hematoma, anemia Hospital Course Date of Admission: Jul 04, 2021 at 00:25 Admission Diagnosis : Family Physician/Provider: Lisa Solomon MD Date of Discharge: 07/26/21 Discharge Diagnosis: HSV infection SROM 37 week gestation wound hematoma opiate dependence Hospital Course: Rupture of Membranes (This is a 25-year-old 2 para 0 female at 37 weeks gestation. She presents for spontaneous rupture of membranes. 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 She states her most recent outbreak was within the last [address] Hernandez gave her a prescription for acyclovir but she has not picked that up. I was not able to examine her to see if she is still having an acute outbreak.) section was done without complication. she was admitted for post operative care. Initial pain management was with toradol and oxycodone and then ibuprofen, tylenol and oxycodone. She had initially a routine post operative course. She was on suboxone for history of opioid abuse and this was continued post operatively with oxycodone for breakthrough pain. On post operative day 1 hemoglobin was 9.7 was was a drop from initial hemoglobin. Her incision was very ecchymotic on the periphery and she had increased pain and swelling. Ice and an abdominal binder was placed but the swelling did not decrease over night. She did not have drop in hemoglobin, but, due to suspected wound hematoma, she was taken back to surgery for wound evacuation. (see operative report). She was then readmitted for post operative care. Her hemoglobin remained stable and on POD 3 from cs and 1 from return to surgery she was discharged to parent room. Her oxycodone usage will be monitored with Dr. Madrigal who monitors her suboxone dosing. Labs and Pending Lab Test: Home Meds Active Ibu (Ibuprofen) 600 Mg Tablet 600 Mg PO Q6HR Docusate Sodium 100 Mg Capsule 100 Mg PO BID Acetaminophen 500 Mg Tablet 1,000 Mg PO Q8HR Oxyir Tablet (Oxycodone HCl) 5 Mg Tab 10 Mg PO Q6H PRN Reported Iron (Ferrous Sulfate) 325 Mg Tablet 325 Mg PO Buprenorphine HCl 8 Mg Tab.subl 8 Mg SL 7 Days Assessment/Pt Instructions see discharge instructions Discharge Instructions Discharge Diet: No Restrictions Discharge Physical Examination General Appearance: Alert HEENT: Atraumatic Respiratory: Clear to Auscultation, Normal Air Movement Cardiovascular: Regular Rate Abdominal: Other (no increase in ecchymosis. There is improvement in the surgical incision and wound is intact without drainage. ) Allergies: Coded Allergies: Penicillins (Verified Allergy, Unknown, 07/16/20) Discharge Summary Date of Admission Jul 04, 2021 at 00:25 Date of Discharge Jul 07, 2021 at 17:45 Discharge Date: Jul 07, 2021 Admission Diagnosis spontaneous rupture of membranes history of HSV with recent outbreak 37 week gestation Consults/Procedures Procedures section wound revision/evacuation of wound hematoma acute blood loss anemia ROSANNE PEPPER DO Jul 26, 2021 08:18
== END 2021-07-07 17:45 | disposition home or self-care (01) | DRG 787 ==
LOC: WSo 23:39 → LDRP 23:40 → WSo 07-04 00:24 → EEVIPCON 07-04 00:25 → LDRP 07-04 00:25
PROVIDERS: ADMIT Obstetrics & Gynecology; ATTEND Obstetrics & Gynecology
PROC: 10D00Z1 Extraction of Products of Conception, Low, Open Approach (ICD-10-PCS; principal; 2021-07-04 01:38)
PROC: 0W3F0ZZ Control Bleeding in Abdominal Wall, Open Approach (ICD-10-PCS; 2021-07-06)
DX: O98.32 Other infections with a predominantly sexual mode of transmission complicating childbirth (principal); O99.324 Drug use complicating childbirth; O98.42 Viral hepatitis complicating childbirth; D62 Acute posthemorrhagic anemia; O90.2 Hematoma of obstetric wound; O26.43 Herpes gestationis, third trimester; F11.10 Opioid abuse, uncomplicated; Z37.0 Single live birth; B19.20 Unspecified viral hepatitis C without hepatic coma; O99.02 Anemia complicating childbirth; A60.00 Herpesviral infection of urogenital system, unspecified; Z3A.37 37 weeks gestation of pregnancy; Z88.0 Allergy status to penicillin
CPT/HCPCS: 36415; 81000; 85025; 85027; 86850; 86900; 86901; 88307; 94664; 99212